=== PATIENT | female | born 1975 | race African-American/Black ===

== ENCOUNTER 2019-07-04 10:35 | Emergency (ER) | payer MEDICAID ==
[~2019-07-04] VITALS: Ht 165.1 cm; Wt 77.1 kg
--- NOTE | 2019-07-04 10:56 | NUR ---
PT IS IN BED #1B. DR WILLOUGHBY EVALUATED THE PT.
--- NOTE | 2019-07-04 11:53 | NUR ---
PT WAS D/C'd TO HOME. D/C INSTRUCTIONS GIVEN TO THE PT.
[2019-07-04 11:54] VITALS: BP 136/77
== END 2019-07-04 11:54 | disposition home or self-care (01) ==
LOC: ER 10:35
DX: B35.1 Tinea unguium (principal); Z88.0 Allergy status to penicillin; Z88.5 Allergy status to narcotic agent
CPT/HCPCS: A4663

== ENCOUNTER 2019-08-08 18:14 | Emergency (ER) | payer MEDICAID ==
[~2019-08-08] VITALS: Ht 165.1 cm; Wt 77.1 kg
--- NOTE | 2019-08-08 18:27 | NUR ---
Patient ambulated with stable gait. Speech is clear, speaks in complete sentences. No acute neuro deficits. A/Ox4. Patient came for c/o of sustaining a dog bite to her LLE on her calf area which happened around 1729 today. The dog was a smaller sized dog, the other green party information was not obtained; patient stated that the roller printing supervisor of the dog was homeless and lived in a van. She stated, "I was too worried to wait for the receivable executive to do something, so I just came straight to the ER". Does not recall the last time she has a tetanus shot.
--- NOTE | 2019-08-08 18:36 | NUR ---
Would cleaned and irrigated with normal saline
--- NOTE | 2019-08-08 18:41 | NUR ---
ERMD at bedside for MSE
[2019-08-08] MEDS ORDERED: ACETAMINOPHEN ES 500 MG TABLET ONE (18:44)
[2019-08-08] MEDS ORDERED: NEOMY/BACITRA/POLYMYXIN B OINT UD PACKET TP ONE ×2 (18:45→19:00)
[2019-08-08] MEDS ORDERED: TDAP DIPH,PERTUSS,TET VAC/PF 0.5 ML DISP.SYRIN IM ONE ×2 (18:45→19:00)
[2019-08-08] MEDS ORDERED: IBUPROFEN 800 MG TABLET ONE (18:45)
[2019-08-08] MEDS ORDERED: ACETAMINOPHEN ES 500 MG TABLET PO ONE (19:00)
[2019-08-08] MEDS ORDERED: CLINDAMYCIN HCL 150 MG CAPSULE PO ONE (19:00)
[2019-08-08] MEDS ORDERED: LEVOFLOXACIN 750 MG TABLET PO ONE (19:00)
[2019-08-08] MEDS ORDERED: IBUPROFEN 800 MG TABLET PO ONE (19:00)
[2019-08-08] MEDS ORDERED: CLINDAMYCIN HCL 150 MG CAPSULE ONE (19:03)
[2019-08-08] MEDS ORDERED: LEVOFLOXACIN 750 MG TABLET ONE (19:03)
--- NOTE | 2019-08-08 19:12 | NUR ---
Patient discharged to home in stable conditon. Written and verbal after care instructions given. Patient verbalizes understanding of instructions. Patient ambulated with stable gait.
[2019-08-08 19:14] VITALS: BP 121/70
== END 2019-08-08 19:15 | disposition home or self-care (01) ==
LOC: ER 18:15
DX: S81.851A Open bite, right lower leg, initial encounter (principal); Z88.0 Allergy status to penicillin; Z88.5 Allergy status to narcotic agent; W54.0XXA Bitten by dog, initial encounter; Y93.89 Activity, other specified; Y92.89 Other specified places as the place of occurrence of the external cause; Y99.8 Other external cause status
CPT/HCPCS: 90715; A4217; A4663; A9150

== ENCOUNTER 2019-11-23 09:19 | Emergency (ER) | payer MEDICAID ==
[~2019-11-23] VITALS: Ht 167.6 cm; Wt 79.4 kg
[2019-11-23 11:05] LABS: BASOPHILS # (AUTO) 0.1 K/uL (0.0-8.0); BASOPHILS % (AUTO) 1.4 % (0.0-2.0); EOSINOPHILS # (AUTO) 0.1 K/uL (0.0-0.7); EOSINOPHILS % (AUTO) 1.9 % (0.0-7.0); HEMATOCRIT 35.6 % (31.2-41.9); HEMOGLOBIN 11.6 g/dL (10.9-14.3); LYMPHOCYTES # (AUTO) 1.6 K/uL (20.0-40.0); LYMPHOCYTES % (AUTO) 20.8 % (20.5-51.5); MEAN CORPUSCULAR HEMOGLOBIN 28.5 uug (24.7-32.8); MEAN CORPUSCULAR HGB CONC 33 g/dL (32.3-35.6); MEAN CORPUSCULAR VOLUME 87.5 fL (75.5-95.3); MONOCYTES # (AUTO) 0.6 K/uL (2.0-10.0); MONOCYTES % (AUTO) 7.8 % (0.0-11.0); NEUTROPHILS # (AUTO) 5.4 K/uL (1.8-8.9); NEUTROPHILS % (AUTO) 68.1 % (38.5-71.5); PLATELET COUNT (AUTO) 374 K/uL (179-408); RED BLOOD CELL COUNT(AUTO) 4.07 MIL/uL (3.63-4.92); WHITE BLOOD COUNT (AUTO) 7.9 K/uL (3.8-11.8)
[2019-11-23 11:18] LABS: CREATININE 0.7 mg/dL (0.6-1.3); POTASSIUM 4.4 mmol/L (3.5-5.1)
[2019-11-23] MEDS ORDERED: predniSONE 20 MG TABLET PO ONE (12:15)
[2019-11-23] MEDS ORDERED: CEphaleXIN 500 MG CAPSULE PO ONE (12:15)
[2019-11-23] MEDS ORDERED: CEphaleXIN 500 MG CAPSULE ONE (12:17)
[2019-11-23] MEDS ORDERED: predniSONE 10 MG TABLET ONE (12:18)
[2019-11-23] MEDS ORDERED: predniSONE 50 MG TABLET ONE (12:18)
--- NOTE | 2019-11-23 12:20 | NUR ---
Patient discharged to home in stable conditon. Written and verbal after care instructions given. Patient verbalizes understanding of instructions.pt walks i nsteady gait. no sign of distress.
[2019-11-23 12:55] VITALS: BP 102/71
== END 2019-11-23 12:20 | disposition home or self-care (01) ==
LOC: ER 09:19
DX: I88.9 Nonspecific lymphadenitis, unspecified (principal); Z88.0 Allergy status to penicillin; Z88.5 Allergy status to narcotic agent
CPT/HCPCS: 36415; 71045; 80048; 84484; 84702; 85025; 86403; 87070; 93005; 99285; J7512 ×2; 70030-TC; A4663

== ENCOUNTER 2019-12-05 16:57 | Emergency (ER) | payer MEDICAID ==
[~2019-12-05] VITALS: Ht 167.6 cm; Wt 79.4 kg
[2019-12-05] MEDS ORDERED: FLUCONAZOLE 100 MG TABLET ONE (19:12)
[2019-12-05] MEDS ORDERED: FLUCONAZOLE 100 MG TABLET PO ONE (19:15)
--- NOTE | 2019-12-05 19:28 | NUR ---
Patient discharged to home in stable conditon. Written and verbal after care instructions given. Patient verbalizes understanding of instructions. PATIENT LEFT WITH STABLE GAIT.
[2019-12-05 19:29] VITALS: BP 146/80
== END 2019-12-05 19:29 | disposition home or self-care (01) ==
LOC: ER 16:58
DX: J06.9 Acute upper respiratory infection, unspecified (principal); Z88.0 Allergy status to penicillin; Z88.5 Allergy status to narcotic agent; Z79.899 Other long term (current) drug therapy; Z60.2 Problems related to living alone
CPT/HCPCS: 71045; 93005; A4663